=== PATIENT | female | born 1975 | race American Indian/Alaskan Native ===

== ENCOUNTER 2020-01-04 16:58 | Emergency (ER) | payer SELFPAY ==
[2020-01-04] MEDS ORDERED: SODIUM CHLORIDE 0.9% 1000 ML 1,000 ML IV ONE (19:18)
[2020-01-04] MEDS ORDERED: ONDANSETRON 4 MG/2 ML INJ IV ONE (19:18)
--- NOTE | 2020-01-04 20:08 | Emergency Department Report ---
ED N/V/D HPI - General Chief complaint: Nausea/Vomiting/Diarrhea Stated complaint: V/DIARRHEA/STOMACH CRAMPS Time Seen by Provider: 01/04/20 18:44 Source: patient Mode of arrival: Ambulatory Limitations: No Limitations - History of Present Illness Initial comments: 44-year-old -[place] female with no significant past medical history presents emergency department complaining of a several week history of episodic nausea and vomiting with diarrhea. States she had a reemergence on this past Thursday which she thought was secondary to spoiled food that she thought got too hot inside of her body. States after eating the food she developed some nausea vomiting diarrhea multiple times at home today which began to resolve after about 48 hours. Shortly after the early resolution the symptoms began to reemerge and has continued to occur daily since that time after having the symptoms continue on yesterday she decided come to the emergency department for further evaluation and treatment options. Reports no foreign travel no known contact with the coronavirus reports no hemoptysis no hematemesis no hematochezia. No dysuria no hematuria MD complaint: nausea, vomiting -: Gradual Associated Abdominal Pain: No Location: diffuse Radiation: none Improves with: none Worsens with: none - Related Data Previous Rx's Medication Instructions Recorded Last Taken Type Ciprofloxacin [Ciprofloxacin ORAL 500 mg PO Q12H #10 ml 01/04/20 Unknown Rx LIQ] Hyoscyamine Subl [Levsin Sl 0.125 0.125 mg SL Q6HR PRN #20 tab 01/04/20 Unknown Rx TAB] Ondansetron [Zofran ODT TAB] 8 mg PO Q12HR #14 tab.rapdis 01/04/20 Unknown Rx Allergies Allergy/AdvReac Type Severity Reaction Status Date / Time No Known Allergies Allergy Unverified 01/04/20 17:07 ED Review of Systems ROS: Stated complaint: V/DIARRHEA/STOMACH CRAMPS Other details as noted in HPI Comment: All other systems reviewed and negative ED Past Medical Hx - Past Medical History Previous Medical History?: Yes - Surgical History Past Surgical History?: No - Social History Smoking Status: Current Every Day Smoker Substance Use Type: Marijuana - Medications Home Medications: Home Medications Medication Instructions Recorded Confirmed Last Taken Type Ciprofloxacin [Ciprofloxacin ORAL 500 mg PO Q12H #10 ml 01/04/20 Unknown Rx LIQ] Hyoscyamine Subl [Levsin Sl 0.125 0.125 mg SL Q6HR PRN #20 tab 01/04/20 Unknown Rx TAB] Ondansetron [Zofran ODT TAB] 8 mg PO Q12HR #14 tab.rapdis 01/04/20 Unknown Rx ED Physical Exam - General Limitations: No Limitations General appearance: alert, in no apparent distress - Head Head exam: Present: atraumatic, normocephalic - Eye Eye exam: Present: normal appearance, PERRL, EOMI Pupils: Present: normal accommodation - ENT ENT exam: Present: normal exam, mucous membranes moist - Neck Neck exam: Present: normal inspection - Respiratory Respiratory exam: Present: normal lung sounds bilaterally. Absent: respiratory distress - Cardiovascular Cardiovascular Exam: Present: regular rate, normal rhythm. Absent: systolic murmur, diastolic murmur, rubs, gallop - GI/Abdominal GI/Abdominal exam: Present: soft, normal bowel sounds - Extremities Exam Extremities exam: Present: normal inspection - Back Exam Back exam: Present: normal inspection - Neurological Exam Neurological exam: Present: alert, oriented X3 - Psychiatric Psychiatric exam: Present: normal affect, normal mood - Skin Skin exam: Present: warm, dry, intact, normal color. Absent: rash ED Course Vital Signs 01/04/20 01/04/20 17:03 22:22 Temperature 98.4 F Pulse Rate 95 H 83 Respiratory 18 18 Rate Blood Pressure 158/117 170/108 O2 Sat by Pulse 99 100 Oximetry ED Medical Decision Making - Lab Data Result diagrams: 01/04/20 19:54 01/04/20 19:54 - Radiology Data Radiology results: report reviewed Referring Physician:PATRICE SMITHPatient Name:EL NOVAKPatient ID:[id number] of :[id number]:FemaleAccession:[id number] ort Date:[id number] Status:Finalized Findings [facility] [address] [place] [address] XRay Report Signed Patient: EL NOVAK MR#: [id number] : 1975 Acct:[id number] Age/Sex: 44 / F ADM Date: 01/04/20 Loc: ED Attending Dr: Ordering Physician: PATRICE SMITH Date of Service: 01/04/20 Procedure(s): XR chest routine 2V Accession Number(s): [id number] cc: PATRICE AlanLisa SMITH Fluoro Time In Minutes: CHEST 2 VIEWS 1906 INDICATION / CLINICAL INFORMATION: MAIN: SOB; Pt. c/o diarrhea, abd cramps, poor appetite, loss of taste, and GORDON. Pt. denies SOB or cough. Pt. a roommate has similar symptoms. COMPARISON: None available. FINDINGS: SUPPORT DEVICES: None. HEART / MEDIASTINUM: No significant abnormality. LUNGS / PLEURA: Poor degree of inspiration is seen on the PA view. Mild atelectasis or scarring is seen in the left base. No definite acute infiltrates are noted. No pleural effusions are seen. No pneumothorax. ADDITIONAL FINDINGS: No significant additional findings. IMPRESSION: No significant acute abnormality Signer Name: Jensen Ludwig MD Signed: 01/04/2020 9:20 PM Workstation Name: [id number] Transcribed By: GJ Dictated By: Jensen Ludwig MD Electronically Authenticated By: Jensen Ludwig MD Signed Date/Time: 01/04/202119 DD/ 18 TD/TT: - Medical Decision Making 45-year-old female status post diarrhea nausea vomiting has suspicion for gastroenteritis however overall discomfort or this patient presents with abdominal pain of unclear etiology. Their evaluation has not identified a emergent etiology for the abdominal pain. Specifically, given the very benign exam, normal laboratory studies, and lack of significant risk factors, I have a very low suspicion for appendicitis, ischemic bowel, bowel perforation, or any other life threatening disease. I have discussed with the patient the level of uncertainty with undifferentiated abdominal pain and clearly explained the need to follow-up as noted on the discharge instructions, or return to the Emergency Department immediately if the pain worsens, develops fever, persistent and uncontrollable vomiting, or for any new symptoms or concerns. I discussed with the patient that this presentation today for abdominal pain could represent a significant risk for an acute abdominal process. Although the tests in the ED w ere essentially normal, there is still a possibility of a process such as appendicitis, diverticulitis, cholecystitis, ulcer, early bowel obstruction, mesenteric ischemia, kidney stone, or even kidney infection which could subsequently cause disability or . The patient understands that they must return within 24 hours for a recheck or see their physician within 24 hours for re-exam due to the possibility of significant surgical or medical process. Critical care attestation.: If time is entered above; I have spent that time in minutes in the direct care of this critically ill patient, excluding procedure time. ED Disposition Clinical Impression: Gastroenteritis Disposition: DC-01 TO HOME OR SELFCARE Is pt being admited?: No Does the pt Need Aspirin: No Condition: Stable Instructions: Gastroenteritis (ED) Prescriptions: Ciprofloxacin [Ciprofloxacin ORAL LIQ] 500 mg PO Q12H #10 ml Hyoscyamine Subl [Levsin Sl 0.125 TAB] 0.125 mg SL Q6HR PRN #20 tab PRN Reason: abdominal cramps and spasms Ondansetron [Zofran ODT TAB] 8 mg PO Q12HR #14 tab.rapdis Referrals: EMMY GONSALVES MD [Primary Care Provider] - 3-5 Days [facility] [Provider Group] - 3-5 Days LENIN LAWLER MD [Staff Physician] - 3-5 Days Forms: Work/School Release Form(ED)
[2020-01-04 20:26] LABS: Basophils % (Auto) 0.3 % (0.0-1.8); Eosinophils % (Auto) 0.1 % (0.0-4.3); Hematocrit 33.7 % (30.3-42.9); Hemoglobin 10.3 gm/dl (10.1-14.3); Lymphocytes # (Auto) 1.5 K/mm3 (1.2-5.4); Lymphocytes % (Auto) 26.4 % (13.4-35.0); Mean Corpuscular HGB Conc 31 % (30-34); Monocytes # (Auto) 0.7 K/mm3 (0.0-0.8); Monocytes % (Auto) 11.8 % (0.0-7.3); Platelet Count 293 K/mm3 (140-440); Red Blood Count 5.04 M/mm3 (3.65-5.03)
[2020-01-04 20:27] LABS: Mean Corpuscular Volume 67 fl (79-97); Red Cell Distribution Width 20.1 % (13.2-15.2)
[2020-01-04 20:45] LABS: Alanine Aminotransferase 18 units/L (7-56); Albumin 3.8 g/dL (3.9-5); BUN/Creatinine Ratio 12; Blood Urea Nitrogen 6 mg/dL (7-17); Calcium 10.1 mg/dL (8.4-10.2); Hemolysis Index 0
--- NOTE | 2020-01-04 21:24 | XRay Report ---
CHEST 2 VIEWS 1906 INDICATION / CLINICAL INFORMATION: MAIN: SOB; Pt. c/o diarrhea, abd cramps, poor appetite, loss of t aste, and GORDON. Pt. denies SOB or cough. Pt. a roommate has similar symptoms. COMPARISON: None available. FINDINGS: SUPPORT DEVICES: None. HEART / MEDIASTINUM: No significant abnormality. LUNGS / PLEURA: Poor degree of inspiration is seen on the PA view. Mild atelectasis or scarring is se en in the left base. No definite acute infiltrates are noted. No pleural effusions are seen. No pneum othorax. ADDITIONAL FINDINGS: No significant additional findings. IMPRESSION: No significant acute abnormality Signer Name: Jensen Ludwig MD Signed: 01/04/2020 9:20 PM Workstation Name: [id number]
[2020-01-04 22:16] LABS: Bilirubin,Urine NEG (Negative); Blood,Urine NEG (Negative); Color,Urine Yellow (Yellow); Mucus,Urine 1+ /HPF; Protein,Urine <15 mg/dL mg/dL (Negative); Urobilinogen,Urine < 2.0 mg/dL (<2.0)
[2020-01-04 22:25] VITALS: BP 170/108
== END 2020-01-04 22:25 | disposition home or self-care (01) ==
LOC: ED 16:58
DX: K21.9 Gastro-esophageal reflux disease without esophagitis (principal); F17.200 Nicotine dependence, unspecified, uncomplicated; F12.10 Cannabis abuse, uncomplicated
CPT/HCPCS: 36415; 71046; 80053; 81001; 83690; 85025; 96361; 96374; 99284; J2405; J7030

== ENCOUNTER 2020-01-24 13:38 | Emergency (ER) | payer OTHER ==
[2020-01-24 15:40] VITALS: BP 164/107
== END 2020-01-24 16:34 | disposition home or self-care (01) ==
LOC: ED 13:38
DX: M54.5 Low back pain (principal); M62.830 Muscle spasm of back; R03.0 Elevated blood-pressure reading, without diagnosis of hypertension; J45.909 Unspecified asthma, uncomplicated; F17.200 Nicotine dependence, unspecified, uncomplicated; V89.2XXA Person injured in unspecified motor-vehicle accident, traffic, initial encounter; Y93.89 Activity, other specified; Y92.89 Other specified places as the place of occurrence of the external cause; Y99.8 Other external cause status
CPT/HCPCS: 72131; 99283

== ENCOUNTER 2020-11-21 10:53 | Emergency (ER) | payer SELFPAY ==
[2020-11-21 10:59] VITALS: BP 208/104
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
== END 2020-11-21 11:34 | disposition left against medical advice (07) ==
LOC: ED 10:53
DX: M54.5 Low back pain (principal); Z53.21 Procedure and treatment not carried out due to patient leaving prior to being seen by health care provider

== ENCOUNTER 2021-02-03 11:43 | Emergency (ER) | payer SELFPAY ==
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
[2021-02-03] MEDS ORDERED: HYDROmorphone 1 MG/1 ML INJ IV ONE (13:23)
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
[2021-02-03] MEDS ORDERED: LIDOCAINE (1%) 10 MG/1 ML VIAL 20 ML MDV INFILTRATI ONE (13:24)
--- NOTE | 2021-02-03 13:27 | XRay Report ---
Right shoulder radiograph, 3 views. HISTORY: Dislocation. COMPARISON: None FINDINGS: There is anterior dislocation of the right glenohumeral joint. There is flattening of the p osterolateral humeral head, suggesting Hill-Sachs deformity. Otherwise, no acute fracture. Right AC j oint is intact. Signer Name: Chandra Griffin MD Signed: 02/03/2021 1:23 PM Workstation Name: [id number]
[2021-02-03] MEDS ORDERED: SODIUM CHLORIDE 0.9% 1000 ML 1,000 ML ONE (14:03)
[2021-02-03] MEDS ORDERED: propofoL 200 MG/20 ML VIAL IV ONE ×2 (14:03→14:05)
[2021-02-03] MEDS ORDERED: SODIUM CHLORIDE 0.9% 1000 ML 1,000 ML IV ONE (14:03)
[2021-02-03] MEDS ORDERED: MIDAZOLAM 5 MG/5 ML INJ MDV IV ONE (14:35)
[2021-02-03] MEDS ORDERED: ETOMIDATE 20 MG/10 ML INJ IV ONE ×2 (14:53→14:54)
[2021-02-03] MEDS ORDERED: MIDAZOLAM 5 MG/5 ML INJ MDV IV NR (16:00)
--- NOTE | 2021-02-03 16:34 | XRay Report ---
Right shoulder radiograph, 3 views. HISTORY: Dislocation. COMPARISON: Same-day radiograph at 1258. FINDINGS/IMPRESSION: There is persistent anterior dislocation of the right shoulder. Suspected small Hill-Sachs deformity appears unchanged. No new skeletal abnormality. Signer Name: Chandra Griffin MD Signed: 02/03/2021 4:30 PM Workstation Name: [id number]
[2021-02-03 17:54] VITALS: BP 187/104
== END 2021-02-03 17:51 | disposition other institution (70) ==
LOC: ED 11:43
DX: S43.084A Other dislocation of right shoulder joint, initial encounter (principal); I10 Essential (primary) hypertension; E11.9 Type 2 diabetes mellitus without complications; J45.909 Unspecified asthma, uncomplicated; F17.200 Nicotine dependence, unspecified, uncomplicated; F12.90 Cannabis use, unspecified, uncomplicated; Z72.89 Other problems related to lifestyle; X58.XXXA Exposure to other specified factors, initial encounter; Y93.89 Activity, other specified; Y92.89 Other specified places as the place of occurrence of the external cause; Y99.8 Other external cause status
CPT/HCPCS: 23650; 73030; 96361; 96374; 96375; 99284; J1170; J2250; J2704; J7030

== ENCOUNTER 2021-04-18 22:17 | Emergency (ER) | payer SELFPAY ==
[2021-04-19] MEDS: cloNIDine 0.2 MG TAB PO ONE (01:52)
[2021-04-19 04:30] VITALS: BP 162/108
--- NOTE | 2021-04-19 04:49 | Emergency Department Report ---
ED General Adult HPI - General Chief complaint: High BP Stated complaint: TOOTHACHE/EARACHE PUI?: No Time Seen by Provider: 04/19/21 04:26 Source: patient Mode of arrival: Ambulatory Limitations: No Limitations - History of Present Illness Initial comments: Patient is a 46-year-old female who presents emergency room with complaints of tooth pain and her left jaw. Patient states is in her left upper molar. Patient states the pain is a 10 out of 10. Patient states the pain is worse with palpation and eating. Patient states the pain is better with rest. Patient denies fever and chills. Patient denies nausea vomiting. Patient denies chest pain or shortness of breath. Patient denies headache. Patient denies blurry vision. Patient denies recent travel. Patient denies recent international travel. Patient denies exposure to the novel coronavirus. Patient denies sick contacts. Patient denies fever and chills. Patient denies cough. Patient denies diarrhea. Patient denies coming in contact with anybody with symptoms of the novel coronavirus. Patient states she is not vaccinated against COVID-19. Patient states she has a history of high blood pressure but is not currently taking any medications. -: Sudden Severity scale (0 -10): 10 Quality: stabbing Consistency: constant Improves with: rest Worsens with: eating Associated Symptoms: denies other symptoms. denies: confusion, chest pain, cough, diaphoresis, fever/chills, headaches, loss of appetite, malaise, nausea/vomiting, rash, seizure, shortness of breath, syncope, weakness Treatments Prior to Arrival: Aspirin - Related Data Previous Rx's Medication Instructions Recorded Last Taken Type Amlodipine Besylate [Norvasc] 5 mg PO DAILY 15 Days #15 tablet 04/19/21 Unknown Rx Amoxicillin [Amoxicillin TAB] 875 mg PO BID 10 Days #20 tablet 04/19/21 Unknown Rx Allergies Allergy/AdvReac Type Severity Reaction Status Date / Time No Known Allergies Allergy Verified 02/03/21 13:14 ED Review of Systems ROS: Stated complaint: TOOTHACHE/EARACHE Other details as noted in HPI Constitutional: denies: chills, fever Eyes: denies: eye pain, eye discharge, vision change ENT: as per HPI, dental pain. denies: ear pain, throat pain Respiratory: denies: cough, shortness of breath, wheezing Cardiovascular: denies: chest pain, palpitations Endocrine: no symptoms reported Gastrointestinal: denies: abdominal pain, nausea, diarrhea Genitourinary: denies: urgency, dysuria, discharge Musculoskeletal: denies: back pain, joint swelling, arthralgia Skin: denies: rash, lesions Neurological: denies: headache, weakness, paresthesias Psychiatric: denies: anxiety, depression Hematological/Lymphatic: denies: easy bleeding, easy bruising ED Past Medical Hx - Past Medical History Previous Medical History?: Yes Hx Hypertension: Yes Hx Diabetes: Yes Hx Asthma: Yes - Surgical History Past Surgical History?: No - Family History Family history: no significant - Social History Smoking Status: Current Every Day Smoker Substance Use Type: None - Medications Home Medications: Home Medications Medication Instructions Recorded Confirmed Last Taken Type Amlodipine Besylate [Norvasc] 5 mg PO DAILY 15 Days #15 tablet 04/19/21 Unknown Rx Amoxicillin [Amoxicillin TAB] 875 mg PO BID 10 Days #20 tablet 04/19/21 Unknown Rx ED Physical Exam - General Limitations: No Limitations General appearance: alert, in no apparent distress - Head Head exam: Present: atraumatic, normocephalic - Eye Eye exam: Present: normal appearance - ENT ENT exam: Present: mucous membranes moist - Expanded ENT Exam Expanded Teeth exam: Present: dental caries - Neck Neck exam: Present: normal inspection - Respiratory Respiratory exam: Present: normal lung sounds bilaterally. Absent: respiratory distress - Cardiovascular Cardiovascular Exam: Present: regular rate, normal rhythm. Absent: systolic murmur, diastolic murmur, rubs, gallop - GI/Abdominal GI/Abdominal exam: Present: soft, normal bowel sounds - Extremities Exam Extremities exam: Present: normal inspection - Back Exam Back exam: Present: normal inspection - Neurological Exam Neurological exam: Present: alert, oriented X3 - Psychiatric Psychiatric exam: Present: normal affect, normal mood - Skin Skin exam: Present: warm, dry, intact, normal color. Absent: rash ED Course Vital Signs 04/19/21 04/19/21 04/19/21 00:42 01:52 02:55 Temperature 98.6 F Pulse Rate 91 H 91 H 77 Respiratory 20 18 Rate Blood Pressure 195/123 195/123 191/120 Blood Pressure [Left] O2 Sat by Pulse 99 100 Oximetry 04/19/21 04/19/21 04/19/21 03:00 04:27 04:28 Temperature Pulse Rate 68 Respiratory 11 L 15 Rate Blood Pressure 162/108 Blood Pressure 178/110 [Left] O2 Sat by Pulse 100 100 Oximetry 04/19/21 04:30 Temperature Pulse Rate Respiratory Rate Blood Pressure Blood Pressure [Left] O2 Sat by Pulse 98 Oximetry - Reevaluation(s) Reevaluation #1: While in triage, the patient was given clonidine and the patient's blood p ressure improved. Patient current blood pressure is 163/109. I discussed all results and clinical findings with patient. I discussed plan of care with patient. Patient agrees with plan of care. Patient is stable for discharge. Patient will be discharged home. Patient given discharge instructions. Patient voiced understanding of discharge instructions. 04/19/21 04:46 ED Medical Decision Making - Medical Decision Making Patient is a 46-year-old female who presents emergency room with complaints of dental pain. While in triage, the patient was found to have elevated blood pressure. Patient has a history of hypertension but is not currently taking any blood pressure medication. Patient started on Norvasc 5 mg. While in the ER, the patient was given clonidine 0.2 mg and the patient's blood pressure responded well. Patient blood pressure decreased to a more acceptable and safe range to be discharged. Patient given amoxicillin for her dental caries. Patient encouraged to follow-up with primary care within 2 to 3 days. Patient agrees to follow-up with the dentist as soon as possible. Patient not require any further emergency services. Patient not require inpatient service. Patient stable for discharge. Patient discharged home. - Differential Diagnosis Hypertension, dental pain, tooth ache, poor dentition Critical care attestation.: If time is entered above; I have spent that time in minutes in the direct care of this critically ill patient, excluding procedure time. ED Disposition Clinical Impression: Dental caries, Pain, dental Hypertension Qualifiers: Hypertension type: primary hypertension Qualified Code(s): I10 - Essential (primary) hypertension Disposition: 01 HOME / SELF CARE / HOMELESS Is pt being admited?: No Does the pt Need Aspirin: No Condition: Stable Instructions: Hypertension (ED), Preventing Hypertension, Hypertension, Adult, [id number], Dental Extraction, Care After, [id number], Managing Your Hypertension, Preventive Dental Care, Adult Additional Instructions: Patient to follow-up with primary care in 2 to 3 days. Patient to follow-up with dentist in 2 to 3 days. Patient to rest. Patient to increase water. Patient to avoid strenuous exercise or heavy lifting until cleared by primary care. Patient to take Tylenol or ibuprofen as needed for pain. Patient to take meds as directed. Patient to return to the ER if condition worsens, changes or new symptoms arise. Patient to eat a low-salt diet. Patient eat a heart healthy diet. Patient to monitor blood pressure at home. Patient to keep a blood pressure log at home. Patient to take blood pressure log to all follow-up appointments. Prescriptions: Amoxicillin [Amoxicillin TAB] 875 mg PO BID 10 Days #20 tablet Amlodipine Besylate [Norvasc] 5 mg PO DAILY 15 Days #15 tablet Referrals: LENIN LAWLER MD [Staff Physician] - 2-3 Days Time of Disposition: 04:49
== END 2021-04-19 05:14 | disposition home or self-care (01) ==
LOC: ED 22:17
DX: K02.9 Dental caries, unspecified (principal); K08.89 Other specified disorders of teeth and supporting structures; I10 Essential (primary) hypertension; E11.9 Type 2 diabetes mellitus without complications; J45.909 Unspecified asthma, uncomplicated; F17.200 Nicotine dependence, unspecified, uncomplicated; Z79.899 Other long term (current) drug therapy
CPT/HCPCS: 99282